=== PATIENT | female | born 1985 | race Caucasian/White ===

== ENCOUNTER 2016-06-21 14:14 | Emergency (ER) | payer BC ==
[~2016-06-21] VITALS: Ht 157.5 cm; Wt 122.1 kg
[2016-06-21 15:07] LABS: PATH.CAST-FLAG NOT PRESENT; SPERM-FLAG NOT PRESENT; SRC-FLAG NOT PRESENT; XTAL-FLAG NOT PRESENT; YLC-FLAG NOT PRESENT
[2016-06-21 15:22] LABS: BLOOD UREA NITROGEN 6 mg/dL (7-18)
[2016-06-21] MEDS ORDERED: HYDROcodone/APAP 5/325 TABLET ONE (16:23)
[2016-06-21 16:26] VITALS: BP 132/81
[2016-06-21] MEDS ORDERED: HYDROcodone/APAP 5/325 TABLET PO ONE (16:30)
== END 2016-06-21 16:49 | disposition home or self-care (01) ==
LOC: ED 16:43
DX: R10.2 Pelvic and perineal pain (principal); Z90.89 Acquired absence of other organs
CPT/HCPCS: 36415; 76830; 80048; 81001; 82040; 84703; 85025; 87086